=== PATIENT | male | born 1975 | race Caucasian/White ===

== ENCOUNTER 2020-02-26 16:33 | Emergency (ER) | payer BC ==
[~2020-02-26] VITALS: Ht 177.8 cm; Wt 68.0 kg
[2020-02-26] MEDS ORDERED: IBUPROFEN 600600 M1 PO (18:07)
[2020-02-26] MEDS ORDERED: LORCET 5-325 M1 EACH PO (18:07)
[2020-02-26 18:15] VITALS: BP 151/85
== END 2020-02-26 18:15 | disposition home or self-care (01) ==
LOC: M.ERS 16:33
DX: S62.302A Unspecified fracture of third metacarpal bone, right hand, initial encounter for closed fracture (principal); S62.306A Unspecified fracture of fifth metacarpal bone, right hand, initial encounter for closed fracture; W22.8XXA Striking against or struck by other objects, initial encounter; Y93.89 Activity, other specified; Y92.89 Other specified places as the place of occurrence of the external cause; Y99.8 Other external cause status